=== PATIENT | female | born 1995 | race Caucasian/White ===

== ENCOUNTER 2017-06-24 17:27 | Emergency (ER) | payer BC ==
[~2017-06-24] VITALS: Ht 149.9 cm; Wt 72.6 kg
[~2017-06-24 17:27] MED LIST changes: -AMOX-559 PO; -METH4TAB66 PO; -NITR-105 PO; -VORT20TA PO
--- NOTE | 2017-06-24 17:37 | ER Report ---
History and Physical Time Seen By MD: 17:35 Hx. of Stated Complaint: SEEN AT URGENT CARE EARLIER TODAY. WAS TOLD THAT SHE DID NOT HAVE MONO OR PNEUMONIA. SENT HER HOME WITH INHALER, STERIODS, AND AUGMENTIN. REPORTS THAT SHE HAD ONE EPISODE OF VOMITING THIS EVENING AND CAME HERE FOR RE-EVAL. "I JUST FEEL REALLY DEHYDRATED NOW" HPI/ROS CHIEF COMPLAINT: Vomiting HISTORY OF PRESENT ILLNESS: This is a 22 year old female who presents to the emergency department for vomiting. Patient states that she was seen at urgent care earlier this week and was given a prescription Doxycycline, for pneumonia and sore throat. Took the medications for 3 days, had GI upset, went back to urgent care today for cough and worsening symptoms, Rx was changed to Augmentin which she has not started and given Rx for steroids. Was tested for mono which was negative. No strep test, no flu test. Tonight the patient had two episodes of emesis, still has sore throat. She is also having aches and chills, diarrhea and some difficulties emptying her bladder. Denies headaches, visual changes, chest pain or shortness of breath. REVIEW OF SYSTEMS: Respiratory: No cough, no dyspnea. Cardiovascular: No chest pain, no palpitations. Gastrointestinal: No vomiting, no abdominal pain. Musculoskeletal: No back pain. Throat: As above. Allergies: Coded Allergies: Sulfa (Sulfonamide Antibiotics) (Verified Allergy, Intermediate, HIVES, ) HIVES, HIGH FEVERS Home Meds Active Scripts Nitrofurantoin Monohyd/M-Cryst (MACROBID 100 MG CAPSULE) 100 Mg Capsule, 100 MG PO BID for 5 Days, #9 CAPSULE Prov:HANK JOHNSON CAREER AND GUIDANCE COUNSELOR-BC 06/24/17 Reported Medications Vortioxetine Hydrobromide (Brintellix) 20 Mg Tablet, 1 TAB PO DAILY 06/24/17 Methylprednisolone (METHYLPREDNISOLONE) 4 Mg Tab.ds.pk, 4 MG PO DIRECTED, TAB 06/24/17 Amoxicillin/Pot Clav 875-125 Mg Tab (AUGMENTIN 875-125 TABLET) 1 Each Tablet, 1 TAB PO Q12H, TAB 06/24/17 Omeprazole (OMEPRAZOLE) 40 Mg Capsule.dr, 40 MG PO QDAY, CAP 04/12/17 Methylphenidate Hcl (CONCERTA) 36 Mg Tab.er.24, 36 MG PO QAM 04/12/17 Ranitidine Hcl (ZANTAC) 150 Mg Tablet, 150 MG PO DAILY, TAB 04/11/17 Minocycline Hcl (MINOCYCLINE HCL) 100 Mg Tablet, 2 TAB PO QDAY, CAPSULE 06/28/16 Discontinued Reported Medications Vortioxetine Hydrobromide (Brintellix) 10 Mg Tablet, 1 TAB PEG QDAY 04/12/17 Past Medical/Surgical History Patient has a past medical and surgical history of tachycardia, chronic cough, hernia, acid reflux, hiatal hernia, frequent UTIs, left wrist fracture, toe fracture, wears contacts and glasses, has psoriasis, depression, anxiety, wisdom tooth extraction. Hx Smoking: Yes (QUIT 3WEEKS AGO) Smoking Status: Current: Every Day Smoker, Former Smoker Exposure to Second Hand Smoke?: Yes Hx Substance Use Disorder: No Hx Alcohol Use: Yes (2 times weekly) Constitutional Vital Sign - Last 24 Hours 06/24/17 06/24/17 06/24/17 06/24/17 17:32 17:33 18:00 18:30 Temp 98.0 Pulse 98 89 Resp 18 B/P (MAP) 126/90 (102) 126/90 118/83 (95) 118/66 (83) Pulse Ox 95 96 O2 Delivery Room Air Intake and Output 06/24/17 06/24/17 06/25/17 15:00 23:00 07:00 Intake Total 1000 ml Balance 1000 ml Physical Exam General Appearance: The patient is alert, has no immediate need for airway protection and no current signs of toxicity. Eyes: Pupils equal and round no injection. ENT: TM's intact, pearly nicolas, landmarks noted, no injection bilaterally. Nose: inferior turbinates, pink and moist. Throat: Erythema to posterior oropharnyx, no exudate, no tonsillar hypertrophy, moist mucus membranes. Respiratory: Chest is non tender, Left mid lobe grossly rhonchus, otherwise lungs are clear to auscultation. Cardiac: regular rate and rhythm, no murmurs, clicks or rubs. Gastrointestinal: Abdomen is round, soft, with tenderness to epigastrium and right upper quadrant, no masses, bowel sounds normal. Musculoskeletal: Neck: Neck is supple and non tender. Extremities have full range of motion and are non tender. Skin: No rashes or lesions. DIFFERENTIAL DIAGNOSIS: After history and physical exam differential diagnosis was considered for abdominal pain in a female including but not limited to ovarian cyst, pelvic inflammatory disease, ovarian torsion, urinary tract infection, and appendicitis, viral syndrome, gastroenteritis, influenza, mono, strep throat. Medical Decision Making Data Points Laboratory Hematology Test 06/24/17 17:39 06/24/17 18:15 06/24/17 20:22 Influenza Virus Type A (PCR) Negative (NEGATIVE) Influenza Virus Type B (PCR) Negative (NEGATIVE) Amylase Level 100 U/L (0-110) Lipase 50 U/L (23-300) Urine Color Yellow Urine Clarity Cloudy Urine pH 7.0 pH (4.8-9.5) Urine Specific [place] 1.010 Urine Protein Negative mg/dL (NEGATIVE) Urine Glucose (UA) Negative mg/dL (NEGATIVE) Urine Ketones Negative mg/dL (NEGATIVE) Urine Blood Negative (NEGATIVE) Urine Nitrite Negative (NEGATIVE) Urine Bilirubin Negative (NEGATIVE) Urine Urobilinogen Negative mg/dL (0.2-1.9) Urine Leukocyte Esterase Moderate (NEGATIVE) Urine RBC 5 /HPF (0-2/HPF) Urine WBC 26 /HPF (0-5/HPF) Urine Squamous Epithelial Cells Many /LPF (</=FEW) Urine Bacteria Many /HPF (NONE-FEW) Urine Mucus Few /HPF (NONE-FEW) Chemistry Test 06/24/17 17:39 06/24/17 18:15 06/24/17 20:22 Influenza Virus Type A (PCR) Negative (NEGATIVE) Influenza Virus Type B (PCR) Negative (NEGATIVE) Amylase Level 100 U/L (0-110) Lipase 50 U/L (23-300) Urine Color Yellow Urine Clarity Cloudy Urine pH 7.0 pH (4.8-9.5) Urine Specific [place] 1.010 Urine Protein Negative mg/dL (NEGATIVE) Urine Glucose (UA) Negative mg/dL (NEGATIVE) Urine Ketones Negative mg/dL (NEGATIVE) Urine Blood Negative (NEGATIVE) Urine Nitrite Negative (NEGATIVE) Urine Bilirubin Negative (NEGATIVE) Urine Urobilinogen Negative mg/dL (0.2-1.9) Urine Leukocyte Esterase Moderate (NEGATIVE) Urine RBC 5 /HPF (0-2/HPF) Urine WBC 26 /HPF (0-5/HPF) Urine Squamous Epithelial Cells Many /LPF (</=FEW) Urine Bacteria Many /HPF (NONE-FEW) Urine Mucus Few /HPF (NONE-FEW) Urinalysis Test 06/24/17 20:22 Urine Color Yellow Urine Clarity Cloudy Urine pH 7.0 pH (4.8-9.5) Urine Specific [place] 1.010 Urine Protein Negative mg/dL (NEGATIVE) Urine Glucose (UA) Negative mg/dL (NEGATIVE) Urine Ketones Negative mg/dL (NEGATIVE) Urine Blood Negative (NEGATIVE) Urine Nitrite Negative (NEGATIVE) Urine Bilirubin Negative (NEGATIVE) Urine Urobilinogen Negative mg/dL (0.2-1.9) Urine Leukocyte Esterase Moderate (NEGATIVE) Urine RBC 5 /HPF (0-2/HPF) Urine WBC 26 /HPF (0-5/HPF) Urine Squamous Epithelial Cells Many /LPF (</=FEW) Urine Bacteria Many /HPF (NONE-FEW) Urine Mucus Few /HPF (NONE-FEW) EKG/Imaging Imaging Location: [facility] [place] Patient: Basilia Hauser : 1995 Visit/Account:[id number] [facility] Examination: CHEST PA AND LAT Comparison: None. History: Cough. Smoker. Findings: Cardiac and hilar contour size is within normal limits. No consolidation, nodule, or peribronchial inflammation. No pneumothorax, edema, or effusion. Osseous structures are intact. IMPRESSION: Negative chest. Report Dictated By: Jimbo Dias MD at 06/24/2017 6:41 PM Report E-Signed By: Jimbo Dias MD at 06/24/2017 6:42 PM WSN:[id number] ED Course/Re-evaluation Clinical Indication for ER IV: Hydration, IV Access ED Course The patient was admitted to room. History and physical were obtained. Differential diagnoses were considered. An IV was started. 1 L normal saline bolus 2 were given. A CBC, CMP were obtained at urgent care which were unremarkable, a UA is obtained showing a UTI was also contaminated we will go ahead and treat her and send off for culture. Patient was given 4 mg IV Zofran. Negative influenza. Two-view chest x-ray was negative for any acute cardiopulmonary process. These results were reviewed with the patient. Did tell patient that we'll start her on Macrobid, she was given 1 dose of Macrobid in the ED. I also instructed her to hold off on the Augmentin and follow up with her primary care provider Monday for reevaluation of her illness and lymph nodes. Patient was also instructed to return to the emergency department for any other concerns that she may have. Patient was discharged home with her father. Decision to Disposition Date: Jun 24, 2017 Decision to Disposition Time: 21:14 Depart Departure Latest Vital Signs Vital Signs Date Time Temp Pulse Resp B/P (MAP) Pulse Ox O2 Delivery O2 Flow Rate FiO2 06/24/17 18:30 118/66 (83) 06/24/17 18:00 89 96 06/24/17 17:33 98.0 18 Room Air Impression: Primary Impression: UTI (urinary tract infection) Additional Impression: Sorethroat Condition: Improved Disposition: HOME OR SELF-CARE Referrals: SNOW ELIZABETH (PCP) New Scripts Nitrofurantoin Monohyd/M-Cryst (MACROBID 100 MG CAPSULE) 100 Mg Capsule 100 MG PO BID for 5 Days, #9 CAPSULE Prov: HANK JOHNSON 06/24/17 Patient Instructions: Pharyngitis (ED), Urinary Tract Infection in Children (ED ) Additional Instructions: You do not have the flu. Drink plain water. Get plenty of rest. Take the Macrobid as indicated for urinary tract infection. Follow-up with your primary care provider Monday for evaluation of your lymph nodes. Can take ibuprofen or Tylenol as needed for pain. May return to the emergency department for worsening symptoms. Problem Qualifiers Primary Impression: UTI (urinary tract infection) Urinary tract infection type: acute cystitis Hematuria presence: without hematuria Qualified Codes: N30.00 - Acute cystitis without hematuria HANK JOHNSON- Jun 24, 2017 17:37
[2017-06-24] MEDS ORDERED: AMOX-559 PO (17:39)
[2017-06-24] MEDS ORDERED: VORT20TA PO (17:39)
[2017-06-24] MEDS ORDERED: METH4TAB66 PO (17:39)
[2017-06-24] MEDS ORDERED: NS(*) 0.9% 1000 ML BAG 1,000 ML IV ONE ×2 (18:04→19:35)
[2017-06-24] MEDS ORDERED: ONDANSETRON 4 MG/2 ML VIAL IVP ONE (18:05)
[2017-06-24 18:30] VITALS: BP 118/66
--- NOTE | 2017-06-24 18:46 | RADIOLOGY IMAGING REPORT ---
FACILITY: [facility] PATIENT NAME: Basilia Hauser : 1995 MR: [id number] V: [id number] EXAM DATE: ORDERING PHYSICIAN: HANK JOHNSON TECHNOLOGIST: Location: [facility] Patient: Basilia Hauser : 1995 Visit/Account:[id number] Date of Sevice: 06/24/2017 Examination: CHEST PA AND LAT Comparison: None. History: Cough. Smoker. Findings: Cardiac and hilar contour size is within normal limits. No consolidation, nodule, or peribr onchial inflammation. No pneumothorax, edema, or effusion. Osseous structures are intact. IMPRESSION: Negative chest. Report Dictated By: Jimbo Dias MD at 06/24/2017 6:41 PM Report E-Signed By: Jimbo Dias MD at 06/24/2017 6:42 PM WSN:[id number]
[2017-06-24] MEDS ORDERED: NITR-105 PO (21:19)
[2017-06-24] MEDS ORDERED: NITROFURANTOIN MONO 100 MG PO ONE (21:25)
== END 2017-06-24 21:46 | disposition home or self-care (01) ==
LOC: ER 17:41
DX: N30.00 Acute cystitis without hematuria (principal); J02.9 Acute pharyngitis, unspecified; F17.211 Nicotine dependence, cigarettes, in remission
CPT/HCPCS: 71046; 81001; 82150; 83690; 87088; 87502; 96361; 96374; 99283; J2405; J7030

== ENCOUNTER → 2017-06-24 | Outpatient (REF) | payer BC ==
[~2017-06-24] MED LIST: ADD25XRPT PO; ALB18R INH; AMOX-559 PO; AZIT-18 PO; BENZ200C15 PO; CEPH500T7 PO; CIPR-344 PO; CITA-156 PO; CLON0.3T35 PO; DICL-195 PO; ESCI20TA38 PO; FLUO-202 PO; HYDR-4309 PO; HYDR50CA48 PO; IBUP600T22 PO; LISD20CA4 PO; METH36 PO; METH4TAB66 PO; METH54TA12 PO; MINO100C10 PO; MINO100T8 PO; MULT1CAP59 PO; NITR-105 PO; OMEP40CA48 PO; ONDA4TAB PO; ONDA4TAB9 PO; PANT20TA27 PO; PANT40TA65 PO; PROM-110 PO; RANI-324 PO; SERT20OR6 PO; TRAM-420 PO; VENL75CA58 PO; VORT10TA PEG; VORT20TA PO
[2017-06-24 11:55] LABS: PLATELET COUNT, AUTOMATED 345 K/uL (150-450)
== END ==
LOC: ZZSTITCHES 11:31
PROVIDERS: ATTEND Physician Assistant
DX: R59.1 Generalized enlarged lymph nodes (principal); J02.9 Acute pharyngitis, unspecified; R53.83 Other fatigue
CPT/HCPCS: 82040; 82247; 82310; 82374; 82435; 82565; 82947; 84075; 84132; 84155; 84295; 84450; 84460; 84520; 85025; 86644; 86645; 86665

== ENCOUNTER → 2017-07-04 | Outpatient (CLI) | payer BC ==
[~2017-07-04] MED LIST changes: +AMOX-559 PO; +METH4TAB66 PO; +NITR-105 PO; +VORT20TA PO
== END ==
LOC: LAB 12:58
PROVIDERS: ATTEND Nurse Practitioner Family
DX: J02.9 Acute pharyngitis, unspecified (principal); R50.9 Fever, unspecified; R59.0 Localized enlarged lymph nodes
CPT/HCPCS: 36415; 86663; 86664; 86665

== ENCOUNTER → 2017-07-24 | Outpatient (CLI) | payer BC ==
[~2017-07-24] MED LIST changes: +SERT-173 PO; -SERT20OR6 PO
[2017-07-24 15:32] LABS: PLATELET COUNT, AUTOMATED 387 K/uL (150-450)
--- NOTE | 2017-07-24 16:48 | RADIOLOGY IMAGING REPORT ---
FACILITY: [facility] PATIENT NAME: Basilia Hauser : 1995 MR: [id number] V: [id number] EXAM DATE: ORDERING PHYSICIAN: SNOW ELIZABETH TECHNOLOGIST: Location: [facility] Patient: Basilia Hauser : 1995 Visit/Account:[id number] Date of Sevice: 07/24/2017 Exam type: SOFT TISSUE HEAD NECK History: 22-year-old female with mononucleosis, cervical lymphadenopathy Comparison: None. TECHNIQUE: Grayscale and color flow imaging of the cervical lymph node levels was performed Findings: RIGHT NECK: There are 2 slightly prominent hypoechoic right level 1 lymph nodes measuring 1.2 x 0.7 x 1.2 cm and 1.3 x 0.5 x 0.7 cm respectively. These lymph nodes are hypoechoic with thickened cortices. Small right level 3 lymph node measures 1.1 x 0.3 x 0.7 cm. LEFT NECK: 0.4 x 0.2 cm probable intraparotid lymph node is noted on the left. No other concerning lymph nodes on the left. IMPRESSION: 1. 2 slightly prominent right level 1 lymph nodes which are hypoechoic with slightly thickened corti alvarado. In the setting of mononucleosis, these are likely reactive and can be followed clinically. If these lymph nodes continue to enlarge or are clinically concerning, recommend a repeat ultrasound. Report Dictated By: Brenton Cheng MD at 07/24/2017 4:38 PM Report E-Signed By: Brenton Cheng MD at 07/24/2017 4:44 PM WSN:[email or web address]
== END ==
LOC: US 07:39
PROVIDERS: ATTEND Nurse Practitioner Family
DX: B27.90 Infectious mononucleosis, unspecified without complication (principal); R59.0 Localized enlarged lymph nodes; R53.83 Other fatigue
CPT/HCPCS: 36415; 76536; 82040; 82247; 82310; 82374; 82435; 82565; 82947; 84075; 84132; 84155; 84295; 84439; 84443; 84450; 84460; 84481; 84520; 85025

== ENCOUNTER → 2017-08-23 | Outpatient (CLI) | payer BC ==
[2017-08-23 16:28] LABS: PLATELET COUNT, AUTOMATED 346 K/uL (150-450)
--- NOTE | 2017-08-23 17:14 | RADIOLOGY IMAGING REPORT ---
FACILITY: PATIENT NAME: Basilia Hauser : 1995 MR: [id number] V: [id number] EXAM DATE: ORDERING PHYSICIAN: SNOW ELIZABETH TECHNOLOGIST: Location: [facility] [place] Patient: Basilia Hauser : 1995 Visit/Account:[id number] Date of Sevice: 08/23/2017 Exam type: SOFT TISSUE HEAD NECK History: History of mononucleosis, enlarged lymph nodes right zone one, left parotid cyst Comparison: July 24, 2017. Findings: Two slightly prominent level one lymph nodes are again noted on the right. One measures 1.9 x 0.8 x 1.8 cm with thickened cortex and one measures 1.8 x 0.7 x 0.6 cm.. These lymph nodes have increased in size There is a 4 x 4 by 7 mm well-circumscribed hypoechoic nodule in zone five on the left this was not d efinitively seen on the prior study. In zone one on the left there is a 6.7 x 9 x 12 mm lymph node w ith a fatty hilum although cortical thickening. This also was not definitively seen on the prior raghav dy. In zone two there is a 6 x 4 x 7 mm lymph node with a fatty hilum and a 3.7 mm cyst in addition to a 5.3 mm cyst. At the junction of zones two and five on the left there is a 6.7 x 2 x 8.7 mm hypo echoic collection IMPRESSION: 1. The two is a prominent level one lymph nodes on the right have increased in size and may be react rocco although clinical follow-up needed There are several hypoechoic nodules identified on the left in zones one and five and two. These may be reactive although short-term interval follow-up or CT of the neck may be helpful for further eval uation Several cysts identified in zone two on the left Report Dictated By: Rupal Lopez MD at 08/23/2017 5:03 PM Report E-Signed By: Rupal Lopez MD at 08/23/2017 5:10 PM WSN:[email or web address]
== END ==
LOC: US 01:14
PROVIDERS: ATTEND Nurse Practitioner Family
DX: E04.9 Nontoxic goiter, unspecified (principal); R59.0 Localized enlarged lymph nodes
CPT/HCPCS: 36415; 76536; 85025

== ENCOUNTER → 2017-09-05 | Outpatient (CLI) | payer BC ==
--- NOTE | 2017-09-05 20:25 | RADIOLOGY IMAGING REPORT ---
FACILITY: [facility] PATIENT NAME: Basilia Hauser : 1995 MR: [id number] V: [id number] EXAM DATE: ORDERING PHYSICIAN: SNOW ELIZABETH TECHNOLOGIST: Location: [facility] Patient: Basilia Hauser : 1995 Visit/Account:[id number] Date of Sevice: 09/05/2017 Examination: Pelvic ultrasound Comparison: None Available History: Left lower quadrant pain since 09/02/2017. Findings: Standard endovaginal and transabdominal pelvic ultrasound with color flow and spectral anal ysis. Uterus: Uterus measurement: 7.1 x 2.9 x 3.5 cm Endometrium measurement: 4 mm The endometrium and myometrium are homogeneous with no suspicious mass or fluid collection identified . Adnexa: Right ovary: 1.9 x 1.2 x 2.1 cm . No suspicious ovarian or adnexal mass. Normal arterial and venous flow is documented within the ovary on Doppler evaluation. Left ovary: 2.2 x 1.1 x 1.9 cm . 9 mm dominant follicle. No suspicious ovarian or adnexal mass. Norm al arterial and venous flow is documented within the ovary on Doppler evaluation. Free fluid: None Urinary bladder: Unremarkable. IMPRESSION: Negative pelvic ultrasound. Report Dictated By: Jimbo Dias MD at 09/05/2017 8:19 PM Report E-Signed By: Jimbo Dias MD at 09/05/2017 8:21 PM WSN:[id number]
== END ==
LOC: US 15:29
PROVIDERS: ATTEND Nurse Practitioner Family
DX: R10.32 Left lower quadrant pain (principal); Z87.42 Personal history of other diseases of the female genital tract
CPT/HCPCS: 76856

== ENCOUNTER → 2017-09-22 | Outpatient (CLI) | payer BC ==
--- NOTE | 2017-09-22 22:56 | RADIOLOGY IMAGING REPORT ---
FACILITY: [facility] PATIENT NAME: Basilia Hauser : 1995 MR: [id number] V: [id number] EXAM DATE: ORDERING PHYSICIAN: SNOW ELIZABETH TECHNOLOGIST: Location: [facility] [place] Patient: Basilia Hauser : 1995 Visit/Account:[id number] Date of Sevice: 09/22/2017 SOFT TISSUE HEAD NECK HISTORY: Follow-up of cervical lymph nodes Comparison made to previous ultrasound of 07/24/2017 and August 23, 2017. FINDINGS: There are multiple normal sized bilateral cervical lymph nodes seen. No pathologic lymph nodes identi fied. The largest lymph nodes seen within the right neck is seen in zone 1 measuring 1.4 x 1.2 x 0.6 cm. Largest lymph node in the left neck is an elongated normal morphologic fatty hilum lymph nodes measur ing 3.3 x 0.7 x 0.6 cm. The left parotid gland contains several small hypoattenuated lesions likely cysts measuring 4 mm or l ess. IMPRESSION: 1. No concerning cervical lymphadenopathy identified. Report Dictated By: Demario Ruiz MD at 09/22/2017 10:42 PM Report E-Signed By: Demario Ruiz MD at 09/22/2017 10:53 PM WSN:[id number]
== END ==
LOC: US 03:44
PROVIDERS: ATTEND Nurse Practitioner Family
DX: R59.0 Localized enlarged lymph nodes (principal)
CPT/HCPCS: 76536

== ENCOUNTER → 2017-10-17 | Outpatient (CLI) | payer BC ==
[~2017-10-17] MED LIST changes: -RANI-324 PO; +RANI-366 PO
--- NOTE | 2017-10-17 13:59 | EKG ---
FACILITY: [facility] [place] PATIENT NAME: SARA GERARDO : [id number] MR: [id number] V: [id number] EXAM DATE: ORDERING PHYSICIAN: WANG PALM TECHNOLOGIST: SOFIA Guadarrama Reason : CP Blood Pressure : / mmHG Vent. Rate : 084 BPM Atrial Rate : 084 BPM P-R Int : 116 ms QRS Dur : 078 ms QT Int : 368 ms P-R-T Axes : 045 059 043 degrees QTc Int : 434 ms Normal sinus rhythm with sinus arrhythmia Normal ECG No previous ECGs available Confirmed by TRINA CALDERON ([id number]) on 10/17/2017 8:43:56 PM Referred By: CLARA Confirmed By:TRINA CALDERON
--- NOTE | 2017-10-17 17:12 | RADIOLOGY IMAGING REPORT ---
FACILITY: [facility] [place] PATIENT NAME: Basilia Hauser : 1995 MR: [id number] V: [id number] EXAM DATE: ORDERING PHYSICIAN: SNOW ELIZABETH TECHNOLOGIST: Location: [facility] Patient: Basilia Hauser : 1995 Visit/Account:[id number] Date of Sevice: 10/17/2017 Exam type: RIBS LEFT History: Cough and shortness of breath left rib pain anterior lower ribs Comparison: None. Findings: There is no radiographic evidence of acute left rib fracture. No evidence of pleural effusion, pulmo nary consolidation or pneumothorax. IMPRESSION: 1. No radiographic evidence of acute left rib fracture Report Dictated By: Rupal Lopez MD at 10/17/2017 5:08 PM Report E-Signed By: Rupal Lopez MD at 10/17/2017 5:08 PM WSN:[email or web address]
--- NOTE | 2017-10-17 17:12 | RADIOLOGY IMAGING REPORT ---
[place] [facility] [place]: Basilia Hauser : 1995 MR: [id number] V: [id number] EXAM DATE: ORDERING PHYSICIAN: SNOW ELIZABETH TECHNOLOGIST: Location: [facility] Patient: Basilia Hauser : 1995 Visit/Account:[id number] Date of Sevice: 10/17/2017 Exam type: CHEST PA AND LAT History: Cough, shortness of breath, chest tightness, previous smoker, left anterior lower rib pain Comparison: June 24, 2017. Findings: The lungs are free of acute effusions, infiltrates or edema. There is no evidence of a pneumothorax or pneumomediastinum. Cardiac silhouette is normal in size. IMPRESSION: 1. No acute cardiac pulmonary process is seen Report Dictated By: Rupal Lopez MD at 10/17/2017 5:05 PM Report E-Signed By: Rupal Lopez MD at 10/17/2017 5:08 PM WSN:[email or web address]
== END ==
LOC: RAD 13:36
PROVIDERS: ATTEND Nurse Practitioner Family
DX: R07.9 Chest pain, unspecified (principal); R07.81 Pleurodynia; R06.02 Shortness of breath
CPT/HCPCS: 36415; 71046; 71100; 82040; 82247; 82310; 82374; 82435; 82565; 82947; 84075; 84132; 84155; 84295; 84450; 84460; 84484; 84520; 85379; 93005

== ENCOUNTER 2018-02-15 02:24 | Emergency (ER) | payer BC ==
--- NOTE | 2018-02-15 02:26 | ER Report ---
History and Physical Time Seen By MD: 02:26 HPI/ROS CHIEF COMPLAINT: Left arm laceration HISTORY OF PRESENT ILLNESS: 22-year-old female presents ambulatory to the ER with 3 transverse lacerations on her left upper forearm. They appear to be self-inflicted. Patient denies suicidal ideation or tendency. She admits severe depression. She states she just didn't want to feel numb anymore. Patient states her tetanus status is up-to-date. Allergies: Coded Allergies: Sulfa (Sulfonamide Antibiotics) (Verified Allergy, Intermediate, HIVES, 06/24/17) HIVES, HIGH FEVERS Home Meds Reported Medications [ Control] No Conflict Check 02/15/18 Duloxetine Hcl (CYMBALTA) 20 Mg Capcr, 20 MG PO QDAY, #5 CAP 02/15/18 Discontinued Reported Medications Vortioxetine Hydrobromide (Brintellix) 20 Mg Tablet, 1 TAB PO DAILY 06/24/17 Methylprednisolone (METHYLPREDNISOLONE) 4 Mg Tab.ds.pk, 4 MG PO DIRECTED, TAB 06/24/17 Amoxicillin/Pot Clav 875-125 Mg Tab (AUGMENTIN 875-125 TABLET) 1 Each Tablet, 1 TAB PO Q12H, TAB 06/24/17 Omeprazole (OMEPRAZOLE) 40 Mg Capsule.dr, 40 MG PO QDAY, CAP 04/12/17 Methylphenidate Hcl (CONCERTA) 36 Mg Tab.er.24, 36 MG PO QAM 04/12/17 Ranitidine Hcl (ZANTAC) 150 Mg Tablet, 150 MG PO DAILY, TAB 04/11/17 Minocycline Hcl (MINOCYCLINE HCL) 100 Mg Tablet, 2 TAB PO QDAY, CAPSULE 06/28/16 Discontinued Scripts Nitrofurantoin Monohyd/M-Cryst (MACROBID 100 MG CAPSULE) 100 Mg Capsule, 100 MG PO BID for 5 Days, #9 CAPSULE Prov:HANK JOHNSON LIBRARY CONSULTANT-BC 06/24/17 Reviewed Nurses Notes: Yes Old Medical Records Reviewed: Yes Hx Smoking: Yes (QUIT 3WEEKS AGO) Smoking Status: Current: Every Day Smoker, Former Smoker Exposure to Second Hand Smoke?: Yes Hx Substance Use Disorder: No Hx Alcohol Use: Yes (2 times weekly) Constitutional Vital Sign - Last 24 Hours 02/15/18 02:27 Temp 98.6 Pulse 138 Resp 20 Pulse Ox 94 O2 Delivery Room Air Physical Exam General appearance: Alert no distress. Vital signs stable, afebrile, pulse ox normal Respiratory: Chest is non tender, lungs are clear to auscultation. Cardiac: Regular rate and rhythm Extremities: Examination of the left upper arm shows 3 transverse lacerations to both are somewhat superficial into the dermis. One is deep into the subcutaneous tissue. They appeared to be self-induced, there are some s uperficial scratches on the right shoulder consistent with hesitation cuts. There is well. DIFFERENTIAL DIAGNOSIS: After history and physical exam differential diagnosis was considered for laceration, foreign body, self-inflicted cutting Medical Decision Making ED Course/Re-evaluation ED Course Patient was admitted to an examination room. H&P was done. The differential diagnoses was considered. On clinical examination. Patient has 3 transverse lacerations approximately 2.5 cm in length each across the left upper arm in the deltoid region. They appear to be self-inflicted. Patient denies suicidal ideation. She has a history of cutting. She states she was cutting so she wouldn't feel numb. Patient admits to alcohol ingestion. Lacerations were repaired as noted below. Patient reports she has a follow-up appointment since she was recently started on antidepressants with her [facility] in approximately 2 weeks. Procedure: Laceration repair. Verbal consent was obtained from the patient. The 2.5 cm 3 Laceration on the left upper arm was anesthetized in the usual fashion. The wound was scrubbed, draped and explored to its base with a gloved finger. There were no deep structures involved. No tendon injury was identified. The wound was repaired with 5-0 Prolene running suture on each of the 3 lacerations a total of 22 stitches in all. The wound repair was simple. The procedure was performed by myself. Wound care was discussed, suture removal will be in 12-14 days. Decision to Disposition Date: Feb 15, 2018 Decision to Disposition Time: 03:26 Depart Departure Latest Vital Signs Vital Signs Date Time Temp Pulse Resp B/P (MAP) Pulse Ox O2 Delivery O2 Flow Rate FiO2 02/15/18 02:27 98.6 138 20 94 Room Air Impression: Primary Impression: Laceration of arm, left, multiple sites Additional Impression: Depression Condition: Improved Disposition: HOME OR SELF-CARE Referrals: ELIZABETH,SNOW LIBRARY CONSULTANT (PCP) Patient Instructions: Laceration (ED) Additional Instructions: Perform daily wound care, gently cleanse the area with mild baby shampoo Have your stitches removed in 12-14 days. Problem Qualifiers Primary Impression: Laceration of arm, left, multiple sites Encounter type: initial encounter Qualified Codes: S41.112A - Laceration without foreign body of left upper arm, initial encounter Additional Impression: Depression Depression Type: major depressive disorder Major depression recurrence: unspecified whether recurrent Active/Remission status: currently active Major depression episode severity: moderate Qualified Codes: F32.1 - Major depressive disorder, single episode, moderate SOBEIDA MARIE DO Feb 15, 2018 02:26
[2018-02-15] MEDS ORDERED: BIRTH CONTROL (02:35)
[2018-02-15] MEDS ORDERED: DUL20 PO (02:35)
== END 2018-02-15 03:35 | disposition home or self-care (01) ==
LOC: ER 02:42
DX: S41.112A Laceration without foreign body of left upper arm, initial encounter (principal); F32.1 Major depressive disorder, single episode, moderate; X78.9XXA Intentional self-harm by unspecified sharp object, initial encounter
CPT/HCPCS: 99283

== ENCOUNTER 2018-12-02 03:06 | Emergency (ER) | payer BC ==
[~2018-12-02 03:06] MED LIST changes: +BIRTH CONTROL; +DUL20 PO; -HYDR-4309 PO; +HYDR-653 PO; -RANI-366 PO; +RANI-54 PO
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
[2018-12-02] MEDS ORDERED: NS(*) 0.9% 1000 ML BAG 1,000 ML IV ONE (03:15)
[2018-12-02 03:32] LABS: PLATELET COUNT, AUTOMATED 466 K/uL (150-450)
[2018-12-02] MEDS ORDERED: LR(*) 1000 ML BAG 1,000 ML IV PRN (05:10)
[2018-12-02 05:31] VITALS: BP 108/62
[2018-12-02] MEDS ORDERED: LIDOCAINE 2% VISC SLN 15ML UDC PO ONE (05:55)
[2018-12-02] MEDS ORDERED: MAG HYD/AL HYD/SIMETH 30ML UDC PO ONE (05:55)
== END 2018-12-02 08:11 | disposition home or self-care (01) ==
LOC: ER 03:10
DX: F10.920 Alcohol use, unspecified with intoxication, uncomplicated (principal); Y90.8 Blood alcohol level of 240 mg/100 ml or more; I95.9 Hypotension, unspecified
CPT/HCPCS: 80305; 80320; 80329; 81001; 81025; 83735; 84443; 85025; 96360; 96361; 99283; J7030; J7120; 82040; 82247; 82310; 82374; 82435; 82565; 82947; 84075; 84132; 84155; 84295; 84450; 84460; 84520; 87088

== ENCOUNTER 2019-01-12 00:22 | Emergency (ER) | payer BC ==
[2019-01-12 00:23] VITALS: BP 106/79
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
== END 2019-01-12 00:33 ==
LOC: ER 00:27
DX: F10.920 Alcohol use, unspecified with intoxication, uncomplicated (principal)
CPT/HCPCS: 99281